=== PATIENT | male | born 2005 | race Caucasian/White ===

== ENCOUNTER 2025-01-05 20:36 | Emergency (ER) | payer BC ==
[2025-01-05 21:23] LABS: APPEARANCE,URINE CLEAR; GLUCOSE,URINE NEGATIVE (NEGATIVE); OCCULT BLOOD,URINE NEGATIVE (NEGATIVE)
[2025-01-05] MEDS: Ketorolac 30 MG/ML SDV IM ONE (21:31)
[2025-01-05] MEDS: Orphenadrine 60 MG/2 ML Inj IM ONE (21:37)
== END 2025-01-05 21:54 | disposition home or self-care (01) ==
LOC: MW.ED 20:36
DX: S29.012A Strain of muscle and tendon of back wall of thorax, initial encounter (principal); R10.9 Unspecified abdominal pain; Z88.2 Allergy status to sulfonamides; Z79.899 Other long term (current) drug therapy; X58.XXXA Exposure to other specified factors, initial encounter
CPT/HCPCS: 81003; 96372; 96374; 99284; A9270; J1100; J1885